=== PATIENT | male | born 1940 | race Caucasian/White ===

== ENCOUNTER 2020-05-06 06:15 | Day surgery (SDC) | payer MEDICARE ==
[2020-05-01 08:37] VITALS: BMI 28.5
[2020-05-06] MEDS ORDERED: ASPIRIN 325 MG TAB PO STA (06:34)
[2020-05-06] MEDS ORDERED: ALPRAZolam 0.5 MG TAB PO PRN (06:34)
[2020-05-06] MEDS ORDERED: NITROGLYCERIN SL TABS 0.4 MG TAB SUBLINGUAL PRN (06:34)
[2020-05-06] MEDS ORDERED: HEPARIN SODIUM,PORCINE 10,000 UNIT in SODIUM CHLORIDE 0.9% 1,000 ML IRRIGATION PRN (06:34)
[2020-05-06] MEDS ORDERED: SODIUM CHLORIDE 0.9% 1,000 ML in EMPTY BAG 1 BAG IV ONE (06:34)
[2020-05-06] MEDS ORDERED: HEPARIN SODIUM,PORCINE 2,500 UNIT in SODIUM CHLORIDE 0.9% 250 ML IRRIGATION PRN (06:34)
[2020-05-06] MEDS ORDERED: ALPRAZolam 0.25 MG TAB PO PRN (06:34)
[2020-05-06 06:53] LABS: Glucose,Whole Blood 168 mg/dL (75-99)
[2020-05-06] MEDS ORDERED: lisinopriL 10 MG TAB PO STA (07:08)
[2020-05-06] MEDS ORDERED: LIDOCAINE 1% INJ 10MG/ML (20 ML MDV) ONE (07:18)
[2020-05-06] MEDS ORDERED: HEPARIN SODIUM 1,000 UN/ML (10ML VL) ONE (07:38)
[2020-05-06] MEDS ORDERED: VERAPAMIL 2.5 MG/ML 2 ML AMP ONE (07:44)
[2020-05-06] MEDS ORDERED: MIDAZOLAM 2 MG/2 ML VIAL IVP ONE (07:48)
[2020-05-06] MEDS ORDERED: LIDOCAINE 1% INJ 10MG/ML (20 ML MDV) SQ ONE (07:51)
[2020-05-06] MEDS: VERAPAMIL SYRINGE (5 MG/10 ML) INTRAARTER ONE ×2 (07:53→08:20)
[2020-05-06] MEDS ORDERED: HEPARIN SODIUM 1,000 UN/ML (10ML VL) IV ONE ×2 (07:55→08:11)
[2020-05-06] MEDS ORDERED: IOPAMIDOL-370 125ML BTL INJ ONE (08:22)
[2020-05-06] MEDS ORDERED: RX INFO: IV CONTRAST WAS GIVEN 1 EACH MISC MISCELLANE PRN (08:25)
[2020-05-06] MEDS ORDERED: SODIUM CHLORIDE 0.9% 1,000 ML IV SCH (08:30)
[2020-05-06 09:13] LABS: Glucose,Whole Blood 129 mg/dL (75-99)
[2020-05-06 11:47] LABS: Glucose,Whole Blood 256 mg/dL (75-99)
--- NOTE | 2020-05-06 12:07 | CC ---
CARDIAC CATHETERIZATION REPORT PERFORMING PHYSICIAN: Nba Hernandez MD. PROCEDURE PERFORMED: 1. Selective right and left coronary angiogram. 2. Intravascular ultrasound (IVUS) of the left main coronary artery. INDICATION: This is an 80-year-old gentleman with diabetes and hypertension and dyslipidemia who was seen recently at [facility] complaining of chest discomfort with exertion concerning for angina. He underwent myocardial perfusion imaging stress test and that came into be unremarkable but because he continues to be symptomatic, I advised proceeding with coronary angiogram. APPROACH: Right radial artery. COMPLICATION: None. LEVEL OF SEDATION: Moderate with sedation length of 32 minutes. PROCEDURE DESCRIPTION: After obtaining an informed consent, the patient was brought to the cardiac ammunition assembly laborer. The right radial artery was cannulated using micropuncture technique, the micropuncture wire passed easily. Then I placed a 6-Trinidadian sheath at the right radial artery. After that I gave the patient 2 mg of verapamil IA and 8000 units of heparin IV. Selective right and left coronary angiogram performed with JR4 and JL3.5 catheters. Left heart catheterization was not performed. Subsequently, I did intravascular ultrasound (IVUS) of the left main coronary artery. Please see a separate paragraph for that. SELECTIVE CORONARY ANGIOGRAM: 1. The RCA is a large caliber vessel. It is a dominant vessel. The RCA proximally has a lesion appeared to be in the range of 50% to 60%. The mid and distal RCA are angiographically normal. The RCA distally bifurcates into PDA and PLV branches both appeared to be angiographically normal. 2. The distal left main has a plaque that appeared to be in the range of 60%. Intravascular ultrasound intravascular ultrasound (IVUS) of the left main was done and that showed an area stenosis of 79% with a minimal luminal area of 3.8 mm2. The left main bifurcates into left circumflex and left anterior descending artery. 3. The left circumflex: Large caliber vessel. It is a nondominant vessel. The left circumflex has mild disease in its ostium. The mid and distal portion appeared to be angiographically normal. 4. The LAD: The proximal LAD appeared to have mild disease only. The mid LAD appeared to have mild disease and the LAD at that point, bifurcates also gives rise into a large diagonal branch which seems to be angiographically normal. The LAD does not reach the apex. 5. INTRAVASCULAR ULTRASOUND (IVUS) OF THE LEFT MAIN: After documenting and confirming therapeutic ACT, I did engage the left main using JL3.5 guiding catheter. The left main to LAD was wired using a run-through wire. After that I did manual pullback and that showed a minimal luminal area of 3.8 mm2 with area stenosis of 79%. CONCLUSION: 1. Severe distal left main disease. Angiographically, the left main was 60%. Intravascular ultrasound IVUS was performed and that revealed a minimal luminal area of 3.8 mm2 and area stenosis of 79%. 2. Intermediate disease involving the proximal left anterior descending artery. POSTPROCEDURE MANAGEMENT: 1. Consult surgeon for the evaluation of coronary artery bypass grafting. 2. Follow up with the patient. MMODL / IJN: [id number] /
[2020-05-06 12:54] VITALS: RESP 18
--- NOTE | 2020-05-06 13:42 | P.GSCN ---
History of Present Illness Consult date: 05/06/20 Reason for Consult: Coronary artery disease with left main disease Requesting physician: Nba Hernandez History of present illness: This is an 80-year-old gentleman who follows on an outpatient basis with Dr. Srikanth Diaz for primary care and Dr. Hernandez for cardiology. 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 He was experiencing exertional shortness of breath with chest discomfort. He was seen in the office by Dr. Hernandez, had stress test which was normal but the patient continued to have symptoms so he was advised to undergo heart cathterization which was completed today. Catheterization revealed distal left main to have a 60% plaque, IVUS was performed with luminal area 3.8 mm2 and area of stenosis 79%, LAD and LCX were found to have mild disease, proximal RCA had 50-60% stenosis. Due to the left main disease Dr. Parker from cardiothoracic surgery was consulted for surgical recommendations. Review of Systems Review of systems was completed and was negative except as noted - Cardiovascular Cardiovascular Comment(s): chest discomfort Reports as per HPI, Reports dyspnea on exertion - Neurological Neurologic Comment(s): due to guillain barre, does not walk with any assistive devices but he does take his time moving Reports balance difficulties Past Medical History Past Medical History: Diabetes Mellitus, Eye Disorder, GERD/Reflux, Hyperlipidemia, Hypertension, Neurologic Disorder, Prostate Disorder Additional Past Medical History / Comment(s): neuropathy feet. 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 shortness of breath. macular degeneration History of Any Multi-Drug Resistant Organisms: None Reported Past Surgical History: Prostate Surgery Additional Past Surgical History / Comment(s): TURP, dilip cataract surgery, eye lift, surgery for macular degeneration Past Anesthesia/Blood Transfusion Reactions: No Reported Reaction Past Psychological History: No Psychological Hx Reported Smoking Status: Former smoker Past Alcohol Use History: Rare Past Drug Use History: None Reported - Past Family History Father Family Medical History: Cancer Additional Family Medical History / Comment(s): from colon cancer Mother Additional Family Medical History / Comment(s): Berenice Gehrig's disease Medications and Allergies Home Medications Medication Instructions Recorded Confirmed Type Ascorbic Acid [Vitamin C] 1,000 mg PO HS 04/19/20 05/06/20 History Aspirin [Adult Low Dose Aspirin EC] 81 mg PO DAILY 04/19/20 05/06/20 History Cholecalciferol (Vitamin D3) 125 mcg PO DAILY 04/19/20 05/06/20 History [Vitamin D3 (5000 Iu)] Cyanocobalamin (Vitamin B-12) 1,000 mcg PO DAILY 04/19/20 05/06/20 History [Vitamin B-12] Fenofibrate,Micronized 130 mg PO DAILY 04/19/20 05/06/20 History [Fenofibrate] Folic Acid 1 mg PO HS 04/19/20 05/06/20 History Frankinscence And Myrrh Oil 1 dose TOPICAL DAILY PRN 04/19/20 05/06/20 History Glimepiride [Amaryl] 4 mg PO BID 04/19/20 05/06/20 History Insulin Glargine,Hum.rec.anlog 35 unit SQ DAILY 04/19/20 05/06/20 History [Lantus Solostar] Lisinopril [Zestril] 10 mg PO DAILY 04/19/20 05/06/20 History Lovastatin [Mevacor] 40 mg PO HS 04/19/20 05/06/20 History Multivitamins, Thera [Multivitamin 1 tab PO DAILY 04/19/20 05/06/20 History (formulary)] Omeprazole [PriLOSEC] 20 mg PO AC-BRKFST 04/19/20 05/06/20 History Sertraline [Zoloft] 25 mg PO HS 04/19/20 05/06/20 History Canagliflozin [Invokana] 100 mg PO DAILY 05/01/20 05/06/20 History Allergies Allergy/AdvReac Type Severity Reaction Status Date / Time ciprofloxacin [From Cipro] Allergy Itching Verified 05/01/20 08:21 tetracycline Allergy Itching Verified 05/01/20 08:21 oysters Allergy Nausea & Uncoded 05/01/20 08:21 Vomiting Surgical - Exam Vital Signs Temp Pulse Resp BP Pulse Ox 97.8 F 55 L 16 193/86 97 05/06/20 07:10 05/06/20 07:10 05/06/20 07:10 05/06/20 07:10 05/06/20 07:10 - General well developed, well nourished, no distress, no pain - Eyes normal ocular movement - ENT decreased hearing - Neck no masses, no bruits, trachea midline - Respiratory Lung sounds diminished bilaterally. Respirations even, non-labored. Currently on room air with oxygen saturations 94%. No chest wall deformities, no clubbing or cyanosis present - Cardiovascular S1, S2 present. Regular rate and rhythm, sinus rhythm on telemetry with heart rate in the 60s. Palpable pulses peripherally. No edema present. No calf pain or tenderness noted. - Abdomen Abdomen: soft, non tender, bowel sounds - Genitourinary Deferred - Rectum Deferred - Integumentary no rash, no growths - Neurologic normal coordination, normal sensation - Musculoskeletal normal posture - Psychiatric oriented to time, oriented to person, oriented to place, speech is normal, memory intact Results - Labs Abnormal Lab Results - Last 24 Hours (Table) 05/06/20 05/06/20 05/06/20 Range/Units 06:49 09:11 11:37 POC Glucose (mg/dL) 168 H 129 H 256 H (75-99) mg/dL - Imaging Additional studies: heart cath films reviewed with Dr. Parker Assessment and Plan Assessment: 1. Left main coronary artery disease 2. Hypertension 3. Hyperlipidemia 4. Insulin dependent diabetes 5. Guillain-Eaton syndrome 6. 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 Previous tobacco dependence Plan: The patient was seen and examined at the bedside. Chart/diagnostics reviewed. The usual perioperative course of coronary artery bypass surgery was discussed in detail with the patient and his at the bedside, risks and benefits were reviewed, all questions were answered. Dr. Parker did meet with the patient and his and discuss options of surgery versus left main stenting versus medical management. He did discuss the case with Dr. Hernandez as well, we will revisit treatment options later today to determine patient's wishes. The patient is mostly homebound, he leaves the house to get a paper and coffee in the morning but spends the majority of his day in the recliner at home. He does sleep house for physical therapy once or twice a week as well as taoist on the weekends. Per his , he is not an overly active patient. We would recommend to continue to maximize medical therapy with aspirin, statin, beta jayro therapy. Decision regarding surgery versus stenting versus medical management to be determined. More recommendations to follow. Thank you Dr. Hernandez for this consult Time with Patient: Greater than 30
[2020-05-06] MEDS: INSULIN ASPART (NovoLOG) 100 UNIT/ML VIAL SQ SCH ×2 (13:59→17:02)
[2020-05-06 17:01] VITALS: BP 138/65; PULSE 60; TEMP 97.7
[2020-05-06 17:03] LABS: Glucose,Whole Blood 126 mg/dL (75-99)
[2020-05-06] MEDS ORDERED: GLIMEPIRIDE 4 MG TAB PO SCH (17:30)
[2020-05-06] MEDS ORDERED: SERTRALINE 25 MG TAB PO SCH (21:00)
[2020-05-06] MEDS ORDERED: ATORVASTATIN 10 MG TAB PO SCH (21:00)
[2020-05-07] MEDS ORDERED: INSULIN DETEMIR (LEVEMIR) 100 UNIT/ML SYR SQ SCH (07:00)
[2020-05-07] MEDS ORDERED: PANTOPRAZOLE 40 MG TABLET PO SCH (07:30)
[2020-05-07] MEDS ORDERED: FENOFIBRATE 160 MG TAB PO SCH (09:00)
[2020-05-07] MEDS ORDERED: lisinopriL 10 MG TAB PO SCH (09:00)
[2020-05-07] MEDS ORDERED: ASPIRIN 81 MG PO SCH (09:00)
[2020-05-07] MEDS ORDERED: Canagliflozin [Invokana] PO SCH (09:00)
== END 2020-05-06 18:35 | disposition home or self-care (01) ==
LOC: CATHCVL 06:15 → 3SCARD 08:32 → CATHCVL 18:35
PROVIDERS: ATTEND Internal Medicine Interventional Cardiology
DX: I25.110 Atherosclerotic heart disease of native coronary artery with unstable angina pectoris (principal); I10 Essential (primary) hypertension; E78.5 Hyperlipidemia, unspecified; E11.9 Type 2 diabetes mellitus without complications; Z72.0 Tobacco use; G61.0 Guillain-Barre syndrome; R32 Unspecified urinary incontinence; K21.9 Gastro-esophageal reflux disease without esophagitis; Z87.891 Personal history of nicotine dependence; Z98.42 Cataract extraction status, left eye; Z98.41 Cataract extraction status, right eye; Z98.890 Other specified postprocedural states; Z80.0 Family history of malignant neoplasm of digestive organs; Z82.0 Family history of epilepsy and other diseases of the nervous system; Z79.82 Long term (current) use of aspirin; Z79.4 Long term (current) use of insulin; Z79.899 Other long term (current) drug therapy; Z88.1 Allergy status to other antibiotic agents; Z91.013 Allergy to seafood
CPT/HCPCS: 92978; 93454; C1887; C1769 ×3; C1753; C1894; J2250; J2001; J1644; Q9967

== ENCOUNTER 2020-05-20 07:02 | Day surgery (SDC) | payer MEDICARE ==
[~2020-05-20 07:02] MED LIST: ALPRAZolam 0.25 MG TAB PO PRN; ALPRAZolam 0.5 MG TAB PO PRN; ASPIRIN 325 MG TAB PO ONE; ATORVASTATIN 80 MG TAB PO ONE; NITROGLYCERIN SL TABS 0.4 MG TAB SUBLINGUAL PRN; SODIUM CHLORIDE 0.9% 1,000 ML in EMPTY BAG 1 BAG IV ONE
[2020-05-20] MEDS ORDERED: SODIUM CHLORIDE 0.9% 1,000 ML IV ONE (07:26)
[2020-05-20 07:32] LABS: Glucose,Whole Blood 206 mg/dL (75-99)
[2020-05-20] MEDS ORDERED: INSULIN ASPART (NovoLOG) 100 UNIT/ML VIAL SQ ONE (07:35)
[2020-05-20 07:39] LABS: Basophils % (A) 0 %; Eosinophils # (A) 0.2 k/uL (0-0.7); Eosinophils % (A) 2 %; HCT 41.4 % (39.0-53.0); HGB 13.6 gm/dL (13.0-17.5); Lymphocytes # (A) 1.5 k/uL (1.0-4.8); Lymphocytes % (A) 17 %; MCH 31.2 pg (25.0-35.0); MCHC 32.9 g/dL (31.0-37.0); MCV 94.7 fL (80.0-100.0); Mean Platelet Volume 9.5; Monocytes # (A) 0.6 k/uL (0-1.0); Monocytes % (A) 6 %; Neutrophils # (A) 6.3 k/uL (1.3-7.7); Neutrophils % (A) 72 %; Platelet Count 198 k/uL (150-450); RBC 4.37 m/uL (4.30-5.90); RDW 12.8 % (11.5-15.5); WBC 8.7 k/uL (3.8-10.6)
[2020-05-20 07:57] LABS: Calcium 9.1 mg/dL (8.4-10.2); Potassium 4.8 mmol/L (3.5-5.1)
[2020-05-20] MEDS ORDERED: MIDAZOLAM 2 MG/2 ML VIAL IV ONE (08:00)
[2020-05-20] MEDS ORDERED: HYDROmorphone 0.5 MG/0.5 ML SYRINGE IVP ONE (08:00)
[2020-05-20] MEDS ORDERED: LIDOCAINE 1% INJ 10MG/ML (20 ML MDV) ONE (08:18)
[2020-05-20] MEDS ORDERED: LIDOCAINE 1% INJ 10MG/ML (20 ML MDV) SQ ONE (08:22)
[2020-05-20] MEDS ORDERED: niCARdipine 25 MG/10 ML VIAL ONE (08:24)
[2020-05-20] MEDS ORDERED: BIVALIRUDIN BOLUS 250 MG/50 ML IV ONE (08:30)
[2020-05-20] MEDS ORDERED: BIVALIRUDIN 250 MG in SODIUM CHLORIDE 0.9% 36 ML IV ONE (08:31)
[2020-05-20] MEDS ORDERED: TICAGRELOR 90 MG TAB PO ONE (08:39)
[2020-05-20] MEDS ORDERED: TICAGRELOR 90 MG TAB ONE (08:39)
[2020-05-20] MEDS ORDERED: IOPAMIDOL-370 125ML BTL INJ ONE (08:49)
[2020-05-20] MEDS ORDERED: [UNRECOGNIZED DRUG - OTHER] TOPICAL PRN (08:56)
[2020-05-20] MEDS ORDERED: ZOLPIDEM 5 MG TAB PO PRN (08:58)
[2020-05-20] MEDS ORDERED: MAG HYDROX/AL HYDROX/SIMETH 30 ML CUP PO PRN (08:58)
[2020-05-20] MEDS ORDERED: RX INFO: IV CONTRAST WAS GIVEN 1 EACH MISC MISCELLANE PRN (08:58)
[2020-05-20] MEDS ORDERED: ATROPINE SULFATE 0.1 MG/ML 10ML SYRINGE IV PRN (08:58)
[2020-05-20] MEDS ORDERED: NITROGLYCERIN SL TABS 0.4 MG TAB SUBLINGUAL PRN (08:58)
[2020-05-20] MEDS ORDERED: FENOFIBRATE 160 MG TAB PO SCH (09:00)
[2020-05-20] MEDS ORDERED: Canagliflozin [Invokana] PO SCH (09:00)
[2020-05-20] MEDS ORDERED: CYANOCOBALAMIN 500 MCG TAB PO SCH (09:00)
[2020-05-20] MEDS ORDERED: SODIUM CHLORIDE 0.9% 1,000 ML IV SCH (09:00)
[2020-05-20] MEDS ORDERED: CHOLECALCIFEROL 25 MCG (1000 IU) TABLET PO SCH (09:00)
--- NOTE | 2020-05-20 10:30 | PTCA ---
PERCUTANEOUSTRANS CORORONARY ANGIOGRAPHY DATE OF SERVICE: May 20, 2020 PERFORMING PHYSICIAN: Nba Hernandez MD. PROCEDURE PERFORMED: Successful stenting of the distal left main and proximal left anterior descending artery using 4.0 x 18 mm Xience drug-eluting stent which was post-dilated using 4 mm noncompliant balloon with an excellent angiographic result and reduction of stenosis from 80% to 0%. INDICATION: This is an 80-year-old gentleman who was experiencing recently shortness of breath with exertion. He underwent a stress test and that came in to be unremarkable for ischemia, but because he continues to be symptomatic, a heart catheterization was advised. The heart catheterization revealed a tight eccentric plaque involving the distal left main and proximal left anterior descending artery. The patient was referred for coronary artery bypass grafting, but he was deemed to be high risk by the surgeon. Because of that, a percutaneous coronary intervention was advised. APPROACH: Right common femoral artery. COMPLICATION: None. LEVEL OF SEDATION: Moderate with sedation length of a 26 minutes. PROCEDURE DESCRIPTION: After obtaining an informed consent, the patient was brought to the cardiac laborer bituminous paving. The right common femoral artery was cannulated using micropuncture technique, the micropuncture wire passed easily then I placed a 6-Dominican sheath at the the right groin. After that, I did start anticoagulation using Angiomax with bolus and drip per protocol. After that, I did engage the left main using JL4 guide. I did wire the left main to LAD using a run-through wire. The wire was advanced all the way to the distal LAD. After that I did PTCA ballooning using 3.5 x 15 mm balloon and subsequently I deployed 4.0 x 18 mm Xience drug-eluting stent where the stent was positioned under fluoroscopy guidance and deployed under 12 atmospheres for 20 seconds. Subsequently, I post-dilated using 4 mm noncompliant balloon which was inflated under 18 atmospheres. The following angiogram showed excellent angiographic results and the procedure was completed without any complication. POSTPROCEDURE MANAGEMENT: 1. Dual anti-platelet therapy. 2. Risk factor modifications. 3. Follow up with the patient. MMODL / IJN: [id number] /
--- NOTE | 2020-05-20 10:36 | LTR ---
May 20, 2020 Re: Mario Cari Dear Dr. Jiang: Mr. Mario Alcala underwent today successful stenting of the distal left main and proximal left anterior descending artery with an excellent angiographic result and without any complication. I want to thank you for allowing me to participate in his care and please do not hesitate to call if any question or concern. Sincerely, Nba Hernandez MD MMRAMIREZ / CHANELLEN: [id number] /
[2020-05-20] MEDS ORDERED: INSULIN ASPART (NovoLOG) 100 UNIT/ML VIAL SQ SCH (12:30)
[2020-05-20 14:57] VITALS: BMI 28.3
[2020-05-20] MEDS: GLIMEPIRIDE 4 MG TAB PO SCH ×2 (16:24→21:30)
[2020-05-20] MEDS ORDERED: TICAGRELOR 90 MG TAB PO SCH (21:00)
[2020-05-20] MEDS ORDERED: FOLIC ACID 1 MG TAB PO SCH (21:00)
[2020-05-20] MEDS ORDERED: ASCORBIC ACID 500 MG TAB PO SCH (21:00)
[2020-05-20 21:25] LABS: Glucose,Whole Blood 267 mg/dL (75-99)
[2020-05-21 06:04] LABS: Glucose,Whole Blood 185 mg/dL (75-99)
[2020-05-21 06:34] VITALS: BP 162/74; PULSE 60; RESP 18; TEMP 97.6
[2020-05-21 07:49] LABS: African American GFR (CKD) >90 (>60 ml/min/1.73 sqM); Anion Gap 4 mmol/L; Blood Urea Nitrogen 23 mg/dL (9-20); Calcium 9.1 mg/dL (8.4-10.2); Carbon Dioxide 28 mmol/L (22-30); Chloride 106 mmol/L (98-107); Glucose 163 mg/dL (74-99); Non-African American GFR(CKD) 82 (>60 ml/min/1.73 sqM); Potassium 4.5 mmol/L (3.5-5.1); Sodium 138 mmol/L (137-145)
[2020-05-21] MEDS ORDERED: ASPIRIN 81 MG PO SCH (09:00)
[2020-05-21 09:02] LABS: Basophils % (A) 0 %; Eosinophils # (A) 0.2 k/uL (0-0.7); Eosinophils % (A) 3 %; HCT 41.4 % (39.0-53.0); HGB 13.2 gm/dL (13.0-17.5); Lymphocytes # (A) 1.6 k/uL (1.0-4.8); Lymphocytes % (A) 18 %; MCH 30.1 pg (25.0-35.0); MCV 94.2 fL (80.0-100.0); Mean Platelet Volume 9.9; Monocytes # (A) 0.5 k/uL (0-1.0); Monocytes % (A) 6 %; Neutrophils # (A) 6.2 k/uL (1.3-7.7); Neutrophils % (A) 72 %; Platelet Count 191 k/uL (150-450); RBC 4.39 m/uL (4.30-5.90); RDW 13.3 % (11.5-15.5); WBC 8.6 k/uL (3.8-10.6)
--- NOTE | 2020-05-22 06:44 | DS ---
DISCHARGE SUMMARY DATE OF ADMISSION: 05/20/2020 DATE OF DISCHARGE: 05/21/2020 BRIEF HISTORY: This is an 80-year-old gentleman who underwent yesterday successful stenting of unprotected distal left main and proximal left anterior descending artery using a 4.0 x 18 mm Xience drug-eluting stent with an excellent angiographic result. The procedure was performed from the right groin. The right groin is soft and nontender and without any bruises. The patient is going to be discharged on dual anti-platelet therapy and also statin. He will be seen in the office in a week. [id number] / IJN: [id number] /
== END 2020-05-21 09:40 | disposition home or self-care (01) ==
LOC: CATHCVL 07:02 → 3SCARD 13:15 → CATHCVL 05-21 09:40
PROVIDERS: ATTEND Internal Medicine Interventional Cardiology
DX: I25.10 Atherosclerotic heart disease of native coronary artery without angina pectoris (principal); I10 Essential (primary) hypertension; E78.5 Hyperlipidemia, unspecified; E11.9 Type 2 diabetes mellitus without complications; Z72.0 Tobacco use; Z79.82 Long term (current) use of aspirin; Z79.4 Long term (current) use of insulin; Z79.899 Other long term (current) drug therapy; Z88.1 Allergy status to other antibiotic agents
CPT/HCPCS: 80048 ×2; 85025 ×2; C9600; C1760; C1887; C1725 ×2; C1769 ×3; C1894; C1874; J2250; J2001; J0583; J1170; Q9967

== ENCOUNTER 2020-05-25 22:50 | Inpatient (IN) | payer MEDICARE ==
[2020-05-25] MEDS ORDERED: NITROGLYCERIN SL TABS 0.4 MG TAB SUBLINGUAL PRN (23:33)
[2020-05-25] MEDS ORDERED: METOPROLOL TARTRATE 5 MG/5 ML VIAL IVP STA (23:40)
--- NOTE | 2020-05-25 23:40 | ED ---
Arrhythmia/Palpitations HPI - General Chief Complaint: Arrhythmia/Palpitations Stated Complaint: irregular heart rate Time Seen by Provider: 05/25/20 22:54 Source: patient, EMS Mode of arrival: ambulatory Limitations: no limitations - History of Present Illness Initial Comments: This patient is an 80-year-old man who arrives here as a transfer from [facility]. The patient had gone there after experiencing 2-3 days of intermittent rapid heart beat. The patient had gone to [facility] where he hadn't evaluation and was started on IV beta jayro drip and sent here to have admission and cardiology consultation. Patient's history is notable for having recent heart catheterization and stent placement in the left main coronary artery on May 20. When I interview the patient, he is currently not having any symptoms. No chest pain, dyspnea, nausea or vomiting, diaphoresis. MD Complaint: rapid heart beat Onset/Timin -: days(s) Context: occurred during rest Associated Symptoms: denies other symptoms Treatments Prior to Arrival: beta-jayro - Related Data Home Medications Medication Instructions Recorded Confirmed Ascorbic Acid [Vitamin C] 1,000 mg PO HS 04/19/20 05/20/20 Aspirin [Adult Low Dose Aspirin EC] 81 mg PO DAILY 04/19/20 05/20/20 Cholecalciferol (Vitamin D3) 125 mcg PO DAILY 04/19/20 05/20/20 [Vitamin D3 (5000 Iu)] Cyanocobalamin (Vitamin B-12) 1,000 mcg PO DAILY 04/19/20 05/20/20 [Vitamin B-12] Fenofibrate,Micronized 130 mg PO DAILY 04/19/20 05/20/20 [Fenofibrate] Folic Acid 1 mg PO HS 04/19/20 05/20/20 Frankinscence And Myrrh Oil 1 dose TOPICAL DAILY PRN 04/19/20 05/20/20 Glimepiride [Amaryl] 4 mg PO BID 04/19/20 05/20/20 Insulin Glargine,Hum.rec.anlog 35 unit SQ DAILY 04/19/20 05/20/20 [Lantus Solostar] Lisinopril [Zestril] 10 mg PO DAILY 04/19/20 05/20/20 Lovastatin [Mevacor] 40 mg PO HS 04/19/20 05/20/20 Omeprazole [PriLOSEC] 20 mg PO AC-BRKFST 04/19/20 05/20/20 Sertraline [Zoloft] 25 mg PO HS 04/19/20 05/20/20 Canagliflozin [Invokana] 100 mg PO DAILY 05/01/20 05/20/20 Multivitamins, Thera [Multivitamin 1 tab PO DAILY 05/14/20 05/20/20 (formulary)] Previous Rx's Medication Instructions Recorded Ticagrelor [Brilinta] 90 mg PO BID #0 tab 05/21/20 Allergies Allergy/AdvReac Type Severity Reaction Status Date / Time ciprofloxacin [From Cipro] Allergy Itching Verified 05/25/20 23:22 tetracycline Allergy Itching Verified 05/25/20 23:22 oysters Allergy Nausea & Uncoded 05/25/20 23:22 Vomiting Review of Systems ROS Statement: Those systems with pertinent positive or pertinent negative responses have been documented in the HPI. ROS Other: All systems not noted in ROS Statement are negative. Constitutional: Denies: fever, chills Respiratory: Denies: cough, dyspnea Cardiovascular: Reports: as per HPI, palpitations. Denies: chest pain, orthopnea, edema, syncope Gastrointestinal: Denies: abdominal pain, nausea, vomiting, diarrhea, constipation, melena, hematochezia Genitourinary: Denies: dysuria, hematuria Musculoskeletal: Denies: back pain Skin: Denies: rash Neurological: Denies: headache, weakness Past Medical History Past Medical History: Coronary Artery Disease (CAD), Diabetes Mellitus, Eye Disorder, GERD/Reflux, Hyperlipidemia, Hypertension, Neurologic Disorder, Prostate Disorder Additional Past Medical History / Comment(s): neuropathy feet. 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 shortness of breath. macular degeneration,GLAUCOMA History of Any Multi-Drug Resistant Organisms: None Reported Past Surgical History: Heart Catheterization, Prostate Surgery Additional Past Surgical History / Comment(s): TURP, dilip cataract surgery, eye lift, surgery for macular degeneration Past Anesthesia/Blood Transfusion Reactions: No Reported Reaction Past Psychological History: Anxiety Smoking Status: Former smoker Past Alcohol Use History: Occasional Past Drug Use History: None Reported - Past Family History Father Family Medical History: Cancer Additional Family Medical History / Comment(s): from colon cancer Mother Additional Family Medical History / Comment(s): Berenice Crawfords disease General Exam Limitations: no limitations General appearance: alert, in no apparent distress Head exam: Present: atraumatic, normocephalic Eye exam: Present: normal appearance. Absent: scleral icterus, conjunctival injection ENT exam: Present: normal oropharynx Neck exam: Present: normal inspection Respiratory exam: Present: normal lung sounds bilaterally. Absent: respiratory distress, wheezes, rales, rhonchi, stridor Cardiovascular Exam: Present: normal rhythm, tachycardia, normal heart sounds. Absent: systolic murmur, diastolic murmur, rubs, gallop GI/Abdominal exam: Present: soft. Absent: distended, tenderness, guarding, rebound, rigid, mass Extremities exam: Present: normal inspection, normal capillary refill. Absent: pedal edema, calf tenderness Back exam: Present: normal inspection. Absent: CVA tenderness (R), CVA tenderness (L) Neurological exam: Present: alert Skin exam: Present: warm, dry, intact, normal color. Absent: rash Course Vital Signs 05/25/20 23:17 Temperature 98.4 F Pulse Rate 126 H Respiratory 16 Rate Blood Pressure 110/70 O2 Sat by Pulse 95 Oximetry EKG Findings - EKG Results: EKG: interpreted by ERMD, sinus rhythm, normal axis, normal QRS, normal ST/T, no acute changes EKG shows: tachycardia (Rate 1:30 bpm) Disposition Clinical Impression: Tachycardia Disposition: ADMITTED IP TO THIS HOSP Condition: Fair Referrals: Daniel Diaz MD [Primary Care Provider] - 1-2 days
[2020-05-26] MEDS ORDERED: METOPROLOL TARTRATE 25 MG TAB PO STA ×2 (00:02→00:10)
[2020-05-26] MEDS ORDERED: METOPROLOL TARTRATE 5 MG/5 ML VIAL IVP STA (00:10)
[2020-05-26 00:49] LABS: Glucose,Whole Blood 178 mg/dL (75-99)
[2020-05-26 04:39] LABS: Cholesterol 132 mg/dL (<200); HDL Cholesterol 37 mg/dL (40-60); LDL Cholesterol,Calculated 68 mg/dL (0-99); Triglycerides 134 mg/dL (<150)
--- NOTE | 2020-05-26 05:41 | P.HPIM ---
History of Present Illness H&P Date: 05/26/20 Chief Complaint: tachycardia 80 year old male with CAD, DM , HTN, history of Karishma barre patient transferred to our facility from [facility] for SVT to get cardiology evaluation patient has been at his baseline status of health , however, he has noticed inc rease exertional dyspnea over past few months, for which he had a left heart cath and a stent deployed into left main , on Wednesday about 1 week ago. since then he did not notice much difference in his breathing. however, he denies any fever, chills, nausea , vomiting, abd pain or chest pain today he had his J&J COVID vacc. later this evening , he was routinely checking his oxygen by pulse ox. however, he noticed that his heart rate was fast in the 140s range. he noticed that over past 3 days , his heart rate is ranging 70-140, with no other associated symptoms , denies dizziness, sweating, nausea , vomiting , or chest pain ,. for which he went to the hospital for evaluation . ,all his blood work was unremarkable , K 4.2 Mg 2.0 EKG showed SVT , patient was then started on IV betablocker and transferred to our facility for cardiology eval here , he was tested for COVID 19, and was positive currently oxygen sat is 97% on 2 L PM NC, and heart rate 62 bpm Review of Systems Pertinent positives as noted in HPI. All other systems were reviewed and are negative Past Medical History Past Medical History: Coronary Artery Disease (CAD), Diabetes Mellitus, Eye Disorder, GERD/Reflux, Hyperlipidemia, Hypertension, Neurologic Disorder, Prostate Disorder, Supraventricular Tachycardia (SVT) Additional Past Medical History / Comment(s): stents to LAD and left main 05/20/20. neuropathy feet. 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 shortness of breath. macular degeneration,GLAUCOMA History of Any Multi-Drug Resistant Organisms: None Reported Past Surgical History: Heart Catheterization, Heart Catheterization With Stent, Prostate Surgery Additional Past Surgical History / Comment(s): TURP, dilip cataract surgery, eye lift, surgery for macular degeneration Past Anesthesia/Blood Transfusion Reactions: No Reported Reaction Date of Last Stent Placement:: 05/20/20 Past Psychological History: Anxiety Smoking Status: Former smoker Past Alcohol Use History: Occasional Additional Past Alcohol Use History / Comment(s): started smoking at age 14-15 quit in 2019 was up to 2packs/day Past Drug Use History: None Reported - Past Family History Father Family Medical History: Cancer Additional Family Medical History / Comment(s): from colon cancer Mother Additional Family Medical History / Comment(s): Berenice Gehrig's disease Medications and Allergies Home Medications Medication Instructions Recorded Confirmed Type Ascorbic Acid [Vitamin C] 1,000 mg PO HS 04/19/20 05/20/20 History Aspirin [Adult Low Dose Aspirin EC] 81 mg PO DAILY 04/19/20 05/20/20 History Cholecalciferol (Vitamin D3) 125 mcg PO DAILY 04/19/20 05/20/20 History [Vitamin D3 (5000 Iu)] Cyanocobalamin (Vitamin B-12) 1,000 mcg PO DAILY 04/19/20 05/20/20 History [Vitamin B-12] Fenofibrate,Micronized 130 mg PO DAILY 04/19/20 05/20/20 History [Fenofibrate] Folic Acid 1 mg PO HS 04/19/20 05/20/20 History Frankinscence And Myrrh Oil 1 dose TOPICAL DAILY PRN 04/19/20 05/20/20 History Glimepiride [Amaryl] 4 mg PO BID 04/19/20 05/20/20 History Insulin Glargine,Hum.rec.anlog 35 unit SQ DAILY 04/19/20 05/20/20 History [Lantus Solostar] Lisinopril [Zestril] 10 mg PO DAILY 04/19/20 05/20/20 History Lovastatin [Mevacor] 40 mg PO HS 04/19/20 05/20/20 History Omeprazole [PriLOSEC] 20 mg PO AC-BRKFST 04/19/20 05/20/20 History Sertraline [Zoloft] 25 mg PO HS 04/19/20 05/20/20 History Canagliflozin [Invokana] 100 mg PO DAILY 05/01/20 05/20/20 History Multivitamins, Thera [Multivitamin 1 tab PO DAILY 05/14/20 05/20/20 History (formulary)] Ticagrelor [Brilinta] 90 mg PO BID #0 tab 05/21/20 Rx Allergies Allergy/AdvReac Type Severity Reaction Status Date / Time ciprofloxacin [From Cipro] Allergy Itching Verified 05/25/20 23:22 tetracycline Allergy Itching Verified 05/25/20 23:22 oysters Allergy Nausea & Uncoded 05/25/20 23:22 Vomiting Physical Exam Vitals: Vital Signs Temp Pulse Pulse Resp BP BP Pulse Ox 05/26/20 04:00 98.3 F 62 19 107/53 98 05/26/20 03:00 67 18 05/26/20 00:55 98.3 F 67 18 128/67 97 05/26/20 00:49 79 18 119/65 96 05/25/20 23:54 78 16 103/69 97 05/25/20 23:17 98.4 F 126 H 16 110/70 95 Intake and Output 05/25/20 05/25/20 05/26/20 14:59 22:59 07:59 Other: Voiding Method Urinal Weight 94.347 kg Constitutional: No acute distress, conversant, pleasant Eyes: Anicteric sclerae, moist conjunctiva, Pupils equal round reactive to light ENMT: NC/AT Oropharynx clear, no erythema, or exudates Neck: Supple, FROM, no masses, or JVD No carotid bruits No thyromegaly Lungs: Clear to auscultation Clear to percussion Normal respiratory effort, no accessory muscle use Cardiovascular: Heart regular in rate and rhythm, No murmurs, gallops, or rubs No peripheral edema Abdominal: Soft Nontender, no guarding, rebound or rigidity Abdomen moving with respiration Normoactive bowel sounds No hepatomegaly, No splenomegaly No palpable mass No abdominal wall hernia noted Skin: Normal temperature, tone, texture, turgor No induration No subcutaneous nodules No rash, lesions No ulcers Extremities: No digital cyanosis No clubbing Pedal pulses intact and symmetrical Radial pulses intact and symmetrical No calf tenderness Psychiatric: Alert and oriented to person, place and time Appropriate affect fair judgement Neuro Muscles Strength 5/5 in all 4 extremities Sensation to light touch grossly present throughout Cranial nerves II-XII grossly intact No focal sensory deficits Lymphatics: no palpable cervical or supraclavicular , or inguinal lymph nodes Results Labs: Abnormal Lab Results - Last 24 Hours (Table) 05/25/20 05/26/20 05/26/20 Range/Units 23:56 00:47 04:03 POC Glucose (mg/dL) 178 H (75-99) mg/dL HDL Cholesterol 37 L (40-60) mg/dL Coronavirus (PCR) Detected A (Not Detectd) Thrombosis Risk Factor Assmnt - Choose All That Apply Any of the Below Risk Factors Present?: Yes Each Factor Represents 1 point: Obesity (BMI >25) Other Risk Factors: Yes Each Risk Factor Represents 3 Points: Age 75 years or older Thrombosis Risk Factor Assessment Total Risk Factor Score: 4 Thrombosis Risk Factor Assessment Level: Moderate Risk Assessment and Plan Assessment: SVT CAD hypertension COIVD 19 positive DM plan cardiology input stop BB drip increase metoprolol dose to 50 mg daily monitor electrolytes replace as needed cardiac monitoring resume cardiac meds brilinta, aspirin and statin droplet and contact precautions monitor oxygen requirement , patient was not hypoxic at any point resume home meds insulin sliding scale echocardiogram CODE STATUS:full code DVT prophylaxis: lovenox daily Discussed with: Patient, ER, RN Anticipated length of stay > than [address]: home A total of 75 minutes was spent on the care of this complex patient more than 50% of the time was spent in counseling and care coordination.
[2020-05-26 06:13] LABS: Glucose,Whole Blood 164 mg/dL (75-99)
[2020-05-26] MEDS: INSULIN ASPART (NovoLOG) 100 UNIT/ML VIAL SQ SCH ×2 (06:16→13:02)
[2020-05-26] MEDS ORDERED: INSULIN DETEMIR (LEVEMIR) 100 UNIT/ML SYR SQ SCH (07:00)
[2020-05-26 07:02] LABS: Basophils % (A) 0 %; Eosinophils % (A) 1 %; HCT 35.3 % (39.0-53.0); HGB 11.9 gm/dL (13.0-17.5); Lymphocytes # (A) 0.6 k/uL (1.0-4.8); Lymphocytes % (A) 10 %; MCH 31.5 pg (25.0-35.0); MCHC 33.6 g/dL (31.0-37.0); MCV 93.9 fL (80.0-100.0); Mean Platelet Volume 10.1; Monocytes # (A) 0.5 k/uL (0-1.0); Monocytes % (A) 8 %; Neutrophils # (A) 4.9 k/uL (1.3-7.7); Neutrophils % (A) 79 %; Platelet Count 149 k/uL (150-450); RBC 3.76 m/uL (4.30-5.90); RDW 12.9 % (11.5-15.5); WBC 6.2 k/uL (3.8-10.6)
[2020-05-26 07:12] LABS: Calcium 8.2 mg/dL (8.4-10.2); Potassium 4.4 mmol/L (3.5-5.1)
[2020-05-26] MEDS ORDERED: PANTOPRAZOLE 40 MG TABLET PO SCH (07:30)
[2020-05-26 08:14] LABS: T4, Free (Free Thyroxine) 0.94 ng/dL (0.78-2.19)
[2020-05-26] MEDS ORDERED: TAMSULOSIN 0.4 MG CAP.ER.24H PO SCH (08:30)
--- NOTE | 2020-05-26 08:35 | P.CRDCN ---
History of Present Illness Consult date: 05/26/20 Consult reason: atrial flutter (vs SVT) History of present illness: History of present illness: This is an 80-year-old male patient of Dr. Hernandez a past history of diabetes mellitus type 2, coronary artery disease, hypertension, hyperlipidemia patient was recently seen in the office for shortness of breath with exertion and underwent a stress test and documented to be unremarkable but because he continued to have symptoms, patient was advised to undergo heart catheterization which was performed on May 06 that revealed severe distal left main, intermediate disease involving the proximal LAD. Patient met with the cardiothoracic surgery and was thought to be high risk for coronary artery bypass grafting and recommended medical management. Patient follow-up visit in the office and because he was continuing to have symptoms he underwent a stenting of the distal left main and proximal LAD on May 20. Patient presented to [facility] for SVT and cardiology evaluation. Patient had been checking his pulse ox and found that his heart rate was in the 140s and had been running between 70 and 140 over the past 3 days. Patient states that he has been asymptomatic. He denies any chest pain, shortness of breath, lightheade dness or dizziness. He denies having palpitations. He states his family was upset about it and made him come in the hospital. Potassium was 4.2, magnesium 2.0. EKG showed SVT and patient was started on beta jayro gtt and transferred to [facility]. COVID-19 was positive. TSH of 6.130 with a normal free T4. quality assurance monitor final is now sinus rhythm in the 60s. Echocardiogram performed in the office 02/20/2020 revealed a normal EF with mild TR and mild MR. Review Of Systems: Constitutional: No fever, no chills. No weakness, fatigue or lethargy. EENT: No headache. No dizziness. Lungs: No shortness of breath, cough, no sputum production. No wheezing. Cardiovascular: No chest pain, no lower extremity edema. No palpitations. No paroxysmal nocturnal dyspnea. No orthopnea. No lightheadedness or dizziness. No syncopal episodes. Abdominal: No abdominal pain. No nausea, vomiting. No diarrhea. Physical examination: Gen: This is an 80-year-old male. He is resting in bed. Patient was interviewed from the doorway. Full physical exam was not performed. HEENT: Head is atraumatic, normocephalic. LUNGS: No sensory muscle usage. No intercostal retractions. HEART: quality assurance monitor final sinus rhythm in the 60s. NEUROLOGICAL: Patient is awake, alert and oriented x3. Assessment: SVT Covid 19 infection Coronary artery disease with recent stenting of the left main and LAD Hypertension Hyperlipidemia Plan: Heart rate is currently controlled Continue metoprolol succinate 50 mg daily No need to repeat echocardiogram Further recommendations to follow based upon clinical course Follow up with Dr. Hernandez in the office Thank you kindly for this consultation. Nurse practitioner note has been reviewed, I agree with documented findings and plan of care. Patient was seen and examined. Past Medical History Past Medical History: Coronary Artery Disease (CAD), Diabetes Mellitus, Eye Disorder, GERD/Reflux, Hyperlipidemia, Hypertension, Neurologic Disorder, Prostate Disorder, Supraventricular Tachycardia (SVT) Additional Past Medical History / Comment(s): stents to LAD and left main . neuropathy feet. 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 shortness of breath. macular degeneration,GLAUCOMA History of Any Multi-Drug Resistant Organisms: None Reported Past Surgical History: Heart Catheterization, Heart Catheterization With Stent, Prostate Surgery Additional Past Surgical History / Comment(s): TURP, dilip cataract surgery, eye lift, surgery for macular degeneration Past Anesthesia/Blood Transfusion Reactions: No Reported Reaction Date of Last Stent Placement:: 05/20/20 Past Psychological History: Anxiety Smoking Status: Former smoker Past Alcohol Use History: Occasional Additional Past Alcohol Use History / Comment(s): started smoking at age 12-15 quit in 2019 was up to 2packs/day Past Drug Use History: None Reported - Past Family History Father Family Medical History: Cancer Additional Family Medical History / Comment(s): from colon cancer Mother Additional Family Medical History / Comment(s): Berenice Gehrig's disease Medications and Allergies Home Medications Medication Instructions Recorded Confirmed Type Ascorbic Acid [Vitamin C] 1,000 mg PO HS 04/19/20 05/26/20 History Aspirin [Adult Low Dose Aspirin EC] 81 mg PO DAILY 04/19/20 05/26/20 History Cholecalciferol (Vitamin D3) 125 mcg PO DAILY 04/19/20 05/26/20 History [Vitamin D3 (5000 Iu)] Cyanocobalamin (Vitamin B-12) 1,000 mcg PO DAILY 04/19/20 05/26/20 History [Vitamin B-12] Fenofibrate,Micronized 130 mg PO DAILY 04/19/20 05/26/20 History [Fenofibrate] Folic Acid 1 mg PO HS 04/19/20 05/26/20 History Glimepiride [Amaryl] 4 mg PO BID 04/19/20 05/26/20 History Insulin Glargine,Hum.rec.anlog 35 unit SQ DAILY 04/19/20 05/26/20 History [Lantus Solostar] Lisinopril [Zestril] 10 mg PO DAILY 04/19/20 05/26/20 History Lovastatin [Mevacor] 40 mg PO HS 04/19/20 05/26/20 History Sertraline [Zoloft] 25 mg PO HS 04/19/20 05/26/20 History Canagliflozin [Invokana] 100 mg PO DAILY 05/01/20 05/26/20 History Multivitamins, Thera [Multivitamin 1 tab PO DAILY 05/14/20 05/26/20 History (formulary)] Ticagrelor [Brilinta] 90 mg PO BID #0 tab 05/21/20 05/26/20 Rx Latanoprost/Pf [Latanoprost 0.005% 1 drop BOTH EYES HS 05/26/20 05/26/20 History Eye Drop] Metoprolol Succinate [Toprol XL] 25 mg PO DAILY 05/26/20 05/26/20 History Omeprazole Magnesium [PriLOSEC OTC] 20 mg PO DAILY 05/26/20 05/26/20 History Allergies Allergy/AdvReac Type Severity Reaction Status Date / Time ciprofloxacin [From Cipro] Allergy Itching Verified 05/26/20 09:22 tetracycline Allergy Itching Verified 05/26/20 09:22 oysters Allergy Nausea & Uncoded 05/25/20 23:22 Vomiting Physical Exam Vitals: Vital Signs Temp Pulse Pulse Resp BP BP Pulse Ox 05/26/20 04:00 98.3 F 62 19 107/53 98 05/26/20 03:00 67 18 05/26/20 00:55 98.3 F 67 18 128/67 97 05/26/20 00:49 79 18 119/65 96 05/25/20 23:54 78 16 103/69 97 05/25/20 23:17 98.4 F 126 H 16 110/70 95 Intake and Output 05/25/20 05/26/20 05/26/20 21:59 06:59 14:59 Output Total Balance Output: Urine Other: Voiding Method # Voids Weight Results 05/26/20 06:09 05/26/20 06:09 Cardiac Enzymes 05/26/20 05/26/20 Range/Units 00:00 04:03 Troponin I 0.016 0.024 (0.000-0.034) ng/mL Lipids 05/26/20 Range/Units 04:03 Triglycerides 134 (<150) mg/dL Cholesterol 132 (<200) mg/dL HDL Cholesterol 37 L (40-60) mg/dL CBC 05/26/20 Range/Units 06:09 WBC 6.2 (3.8-10.6) k/uL RBC 3.76 L (4.30-5.90) m/uL Hgb 11.9 L (13.0-17.5) gm/dL Hct 35.3 L (39.0-53.0) % Plt Count 149 L (150-450) k/uL Comprehensive Metabolic Panel 05/26/20 Range/Units 06:09 Sodium 138 (137-145) mmol/L Potassium 4.4 (3.5-5.1) mmol/L Chloride 106 (98-107) mmol/L Carbon Dioxide 23 (22-30) mmol/L BUN 28 H (9-20) mg/dL Creatinine 0.99 (0.66-1.25) mg/dL Glucose 152 H (74-99) mg/dL Calcium 8.2 L (8.4-10.2) mg/dL Current Medications Generic Name Dose Route Start Last Admin Trade Name Freq PRN Reason Stop Dose Admin Aspirin 81 mg 05/26/20 09:00 Aspirin 81 Mg PO DAILY [facility] Atorvastatin Calcium 40 mg 05/26/20 21:00 Atorvastatin 10 Mg Tab PO HS [facility] Cholecalciferol 25 mcg 05/26/20 09:00 Cholecalciferol 25 Mcg (1000 Iu) Tablet PO DAILY [facility] Cyanocobalamin 1,000 mcg 05/26/20 09:00 Cyanocobalamin 500 Mcg Tab PO DAILY [facility] Enoxaparin Sodium 40 mg 05/26/20 09:00 Enoxaparin 40 Mg/0.4 Ml Syringe SQ DAILY [facility] Fenofibrate 160 mg 05/26/20 09:00 Fenofibrate 160 Mg Tab PO DAILY [facility] Folic Acid 1 mg 05/26/20 21:00 Folic Acid 1 Mg Tab PO HS [facility] Insulin Aspart 0 unit 05/26/20 07:30 05/26/20 06:16 Insulin Aspart (Novolog) 100 Unit/Ml Vial SQ 1 unit ACHS [facility] Administration Protocol Insulin Detemir 35 unit 05/26/20 07:00 Insulin Detemir (Levemir) 100 Unit/Ml Syr SQ DAILY@0700 [facility] Lisinopril 10 mg 05/26/20 09:00 Lisinopril 10 Mg Tab PO DAILY [facility] Metoprolol Succinate 50 mg 05/26/20 09:00 Metoprolol Succinate (Er) 50 Mg Tab.Er.24h PO DAILY [facility] Nitroglycerin 0.4 mg 05/25/20 23:33 Nitroglycerin Sl Tabs 0.4 Mg Tab SUBLINGUAL Q5M PRN Chest Pain Canagliflozin [ 100 mg 05/26/20 09:00 Invokana] 100 Mg PO Tablet DAILY [facility] Pantoprazole Sodium 40 mg 05/26/20 07:30 05/26/20 06:17 Pantoprazole 40 Mg Tablet PO 40 mg AC-BRKFST [facility] Administration Sertraline HCl 25 mg 05/26/20 21:00 Sertraline 25 Mg Tab PO HS [facility] Tamsulosin HCl 0.4 mg 05/26/20 08:30 Tamsulosin 0.4 Mg Cap.Er.24h PO PC-BRKFST [facility] Ticagrelor 90 mg 05/26/20 09:00 Ticagrelor 90 Mg Tab PO BID [facility] Intake and Output 05/25/20 05/26/20 05/26/20 21:59 06:59 14:59 Output Total Balance Output: Urine Other: Voiding Method # Voids Weight 05/26/20 06:09 05/26/20 06:09
[2020-05-26] MEDS ORDERED: CYANOCOBALAMIN 500 MCG TAB PO SCH (09:00)
[2020-05-26] MEDS ORDERED: GLIMEPIRIDE 4 MG TAB PO SCH (09:00)
[2020-05-26] MEDS ORDERED: ASPIRIN 81 MG PO SCH ×2 (09:00)
[2020-05-26] MEDS ORDERED: FENOFIBRATE 160 MG TAB PO SCH (09:00)
[2020-05-26] MEDS ORDERED: lisinopriL 10 MG TAB PO SCH (09:00)
[2020-05-26] MEDS ORDERED: METOPROLOL SUCCINATE (ER) 50 MG TAB.ER.24H PO SCH (09:00)
[2020-05-26] MEDS ORDERED: TICAGRELOR 90 MG TAB PO SCH (09:00)
[2020-05-26] MEDS ORDERED: ENOXAPARIN 40 MG/0.4 ML SYRINGE SQ SCH (09:00)
[2020-05-26] MEDS ORDERED: CHOLECALCIFEROL 25 MCG (1000 IU) TABLET PO SCH (09:00)
[2020-05-26 09:17] VITALS: RESP 16
[2020-05-26 12:00] LABS: Glucose,Whole Blood 220 mg/dL (75-99)
[2020-05-26 13:00] VITALS: BP 109/50; PULSE 56; TEMP 98.1
--- NOTE | 2020-05-26 14:22 | P.DS ---
Providers Date of admission: 05/25/20 23:34 Expected date of discharge: 05/26/20 Attending physician: Stacy Pace MD Consults: 05/25/20 23:34 Consult Physician Routine Consulting Provider: Nba Hernandez Consult Reason/Comments: Atrial flutter versus SVT. Do you want consulting provider notified?: Yes Primary care physician: Daniel Diaz MD Hospital Course: SVT CAD hypertension COIVD 19 positive DM 80 year old man with CAD, HTN, DM, asymptomatic COVID+ s/p vaccine presented with SVT. Pt was started on BB gtt, then his home metoprolol was increased from 25mg XL to 50mg XL. Cardiology evaluated the patient, and noted controlled heart rates with the medication changes. Pt reported feeling back to baseline. He was discharged home with instructions to f/u with PCP and cardiology. Echo was not repeated due to recent check in the office which was normal EF with mild TR and mild MR. Assessment: Gen: awake, alert HEENT: normocephalic, atraumatic, good hearing acuity, moist mucous membranes Resp: good air exchange, breathing comfortably with no accessory muscle use, clear to auscultation bilaterally, no wheezes CVS: good distal perfusion x 4, regular rate rhythm without murmurs GI: soft, NTTP, ND : no SPT, no CVAT, gomez catheter not present MSK: no pitting edema, no clubbing Neuro: non-focal, moving all extremities Psych: cooperative, euthymic mood Patient Condition at Discharge: Good Plan - Discharge Summary Discharge Rx Participant: Yes New Discharge Prescriptions: New Tamsulosin [Flomax] 0.4 mg PO -BRKFST #30 cap.er.24h Continue Cyanocobalamin (Vitamin B-12) [Vitamin B-12] 1,000 mcg PO DAILY Cholecalciferol (Vitamin D3) [Vitamin D3 (5000 Iu)] 125 mcg PO DAILY Ascorbic Acid [Vitamin C] 1,000 mg PO HS Sertraline [Zoloft] 25 mg PO HS Lisinopril [Zestril] 10 mg PO DAILY Aspirin [Adult Low Dose Aspirin EC] 81 mg PO DAILY Lovastatin [Mevacor] 40 mg PO HS Glimepiride [Amaryl] 4 mg PO BID Folic Acid 1 mg PO HS Fenofibrate,Micronized [Fenofibrate] 130 mg PO DAILY Insulin Glargine,Hum.rec.anlog [Lantus Solostar] 35 unit SQ DAILY Canagliflozin [Invokana] 100 mg PO DAILY Multivitamins, Thera [Multivitamin (formulary)] 1 tab PO DAILY Ticagrelor [Brilinta] 90 mg PO BID #0 tab Omeprazole Magnesium [PriLOSEC OTC] 20 mg PO DAILY Latanoprost/Pf [Latanoprost 0.005% Eye Drop] 1 drop BOTH EYES HS Changed Metoprolol Succinate [Toprol XL] 50 mg PO DAILY #60 Discharge Medication List Ascorbic Acid [Vitamin C] 1,000 mg PO HS 04/19/20 [History] Aspirin [Adult Low Dose Aspirin EC] 81 mg PO DAILY 04/19/20 [History] Cholecalciferol (Vitamin D3) [Vitamin D3 (5000 Iu)] 125 mcg PO DAILY 04/19/20 [History] Cyanocobalamin (Vitamin B-12) [Vitamin B-12] 1,000 mcg PO DAILY 04/19/20 [History] Fenofibrate,Micronized [Fenofibrate] 130 mg PO DAILY 04/19/20 [History] Folic Acid 1 mg PO HS 04/19/20 [History] Glimepiride [Amaryl] 4 mg PO BID 04/19/20 [History] Insulin Glargine,Hum.rec.anlog [Lantus Solostar] 35 unit SQ DAILY 04/19/20 [History] Lisinopril [Zestril] 10 mg PO DAILY 04/19/20 [History] Lovastatin [Mevacor] 40 mg PO HS 04/19/20 [History] Sertraline [Zoloft] 25 mg PO HS 04/19/20 [History] Canagliflozin [Invokana] 100 mg PO DAILY 05/01/20 [History] Multivitamins, Thera [Multivitamin (formulary)] 1 tab PO DAILY 05/14/20 [History] Ticagrelor [Brilinta] 90 mg PO BID #0 tab 05/21/20 [Rx] Latanoprost/Pf [Latanoprost 0.005% Eye Drop] 1 drop BOTH EYES HS 05/26/20 [History] Metoprolol Succinate [Toprol XL] 50 mg PO DAILY #60 05/26/20 [Rx] Omeprazole Magnesium [PriLOSEC OTC] 20 mg PO DAILY 05/26/20 [History] Tamsulosin [Flomax] 0.4 mg PO PC-BRKFST #30 cap.er.24h 05/26/20 [Rx] Follow up Appointment(s)/Referral(s): Nba Hernandez MD [STAFF PHYSICIAN] - 1 Week (Please call office and schedule follow up appointment.) Daniel Diaz MD [Primary Care Provider] - 1-2 days Patient Instructions/Handouts: Supraventricular Tachycardia (DC) Discharge Disposition: HOME SELF-CARE
[2020-05-26] MEDS ORDERED: ATORVASTATIN 10 MG TAB PO SCH ×2 (21:00)
[2020-05-26] MEDS ORDERED: SERTRALINE 25 MG TAB PO SCH (21:00)
[2020-05-26] MEDS ORDERED: FOLIC ACID 1 MG TAB PO SCH (21:00)
== END 2020-05-26 15:09 | disposition home or self-care (01) | DRG 308 ==
LOC: EC 22:50 → 3SCARD 23:34
PROVIDERS: ADMIT Internal Medicine; ATTEND Internal Medicine
DX: I47.1 Supraventricular tachycardia (principal); U07.1 COVID-19; E11.42 Type 2 diabetes mellitus with diabetic polyneuropathy; I25.10 Atherosclerotic heart disease of native coronary artery without angina pectoris; K21.9 Gastro-esophageal reflux disease without esophagitis; E78.5 Hyperlipidemia, unspecified; I10 Essential (primary) hypertension; H40.9 Unspecified glaucoma; F41.9 Anxiety disorder, unspecified; H35.30 Unspecified macular degeneration; I08.1 Rheumatic disorders of both mitral and tricuspid valves; N42.9 Disorder of prostate, unspecified; R06.09 Other forms of dyspnea; Z79.82 Long term (current) use of aspirin; Z79.84 Long term (current) use of oral hypoglycemic drugs; Z79.899 Other long term (current) drug therapy; Z79.02 Long term (current) use of antithrombotics/antiplatelets; Z95.5 Presence of coronary angioplasty implant and graft; Z98.42 Cataract extraction status, left eye; Z98.41 Cataract extraction status, right eye; Z87.891 Personal history of nicotine dependence; Z88.1 Allergy status to other antibiotic agents; Z91.018 Allergy to other foods; Z80.0 Family history of malignant neoplasm of digestive organs; Z82.0 Family history of epilepsy and other diseases of the nervous system
CPT/HCPCS: 80048; 80061; 83735; 84439; 84443; 84484; 85025; 87635; 93005; 99285